=== PATIENT | male | born 1960 | race Caucasian/White ===

== ENCOUNTER 2023-05-24 09:49 | Emergency (ER) | payer MEDICARE, MEDICAID ==
[~2023-05-24] VITALS: Ht 170.2 cm; Wt 68.0 kg
[2023-05-24 09:54] VITALS: O2SAT 96
[2023-05-24] MEDS ORDERED: TOPUD MT (12:35)
[2023-05-24] MEDS ORDERED: ACETAMINOPHEN 325MG TABLET PO ONE (12:45)
[2023-05-24 16:48] VITALS: BP 131/85; PULSE 82; RESP 22; TEMP 98.3
== END 2023-05-24 16:55 | disposition home or self-care (01) ==
LOC: ER 10:39
DX: S92.331A Displaced fracture of third metatarsal bone, right foot, initial encounter for closed fracture (principal); S92.341A Displaced fracture of fourth metatarsal bone, right foot, initial encounter for closed fracture; M79.672 Pain in left foot; M25.522 Pain in left elbow; I10 Essential (primary) hypertension; V49.9XXA Car occupant (driver) (passenger) injured in unspecified traffic accident, initial encounter; Y93.89 Activity, other specified; Y92.89 Other specified places as the place of occurrence of the external cause; Y99.8 Other external cause status
CPT/HCPCS: 29515; 73070; 73630; 99284